=== PATIENT | female | born 1985 ===

== ENCOUNTER → 2018-05-23 | Outpatient (CLI) | payer OTHER ==
[2018-05-23 12:41] LABS: BASOPHILS ABSOLUTE AUTO 0.04 K/mm3 (0.00-0.23); BASOPHILS PERCENT AUTO 1 % (0-2); EOSINOPHILS ABSOLUTE AUTO 0.05 K/mm3 (0.00-0.68); EOSINOPHILS PERCENT AUTO 1 % (0-6); Hematocrit 39.6 % (33.0-51.0); Hemoglobin 13.4 g/dL (11.5-16.0); IMMATURE GRAN ABSOLUTE AUTO 0.01 K/mm3 (0.00-0.10); IMMATURE GRAN PERCENT AUTO 0 % (0-1); LYMPHOCYTES ABSOLUTE AUTO 1.62 K/mm3 (0.84-5.20); LYMPHOCYTES PERCENT AUTO 34 % (21-46); MONOCYTES PERCENT AUTO 11 % (4-13); Mean Corpuscular HGB 33.9 pg (26.0-34.0); Mean Corpuscular HGB Conc 33.8 g/dL (31.5-36.5); Mean Corpuscular Volume 100 fL (80-100); Mean Platelet Volume 10.3 fL (9.1-12.4); NEUTROPHILS ABSOLUTE AUTO 2.56 K/mm3 (1.96-9.15); NEUTROPHILS PERCENT AUTO 54 % (41-73); Platelet Count 204 K/mm3 (150-400); RDW Coefficient Variation 13.3 % (11.7-14.2); RDW Standard Deviation 49.4 fL (35.1-46.3); Red Blood Cell Count 3.95 M/mm3 (3.80-5.20); White Blood Cell Count 4.78 K/mm3 (4.00-11.30)
== END | disposition home or self-care (01) ==
LOC: LAB SHORT 12:36 → LAB EV 12:36
PROVIDERS: Physician Assistant Surgical
DX: R58 Hemorrhage, not elsewhere classified (principal)
CPT/HCPCS: 84443; 85025

== ENCOUNTER → 2023-08-25 | Outpatient (CLI) | payer OTHER | LOC: LAB SHORT 07:43 → PLD 07:43 | DX: D06.9 Carcinoma in situ of cervix, unspecified (principal); R87.612 Low grade squamous intraepithelial lesion on cytologic smear of cervix (LGSIL); R87.810 Cervical high risk human papillomavirus (HPV) DNA test positive | CPT/HCPCS: 88305; 88312 ==

== ENCOUNTER 2023-09-12 09:26 | Day surgery (SDC) | payer OTHER ==
[~2023-09-12] VITALS: Ht 154.9 cm; Wt 47.5 kg
--- NOTE | 2023-09-12 11:12 | NUR ---
09/12/23 1112 Carissa Sheikh 10 UNITS OF VASOPRESSIN MIXED WITH 30ML OF LIDOCAINE 1% TO MAKE LOCAL FOR INJECTION AT THE OPSITE BY DR CRUZ. 10 ML INJECTED. [place] [facility] AT [address] CRUZ. LOT #: [id number] EXPIRATION: 01/2026
[2023-09-12 11:45] VITALS: BP 100/78
--- NOTE | 2023-09-12 11:52 | NUR ---
09/12/23 1152 Eliana Smith PT STATES THAT PAIN IS NOW AT A 3/10.
== END 2023-09-12 12:11 | disposition home or self-care (01) ==
LOC: ORSCSDS 09:26
PROVIDERS: Obstetrics & Gynecology
PROC: 0UBC7ZX Excision of Cervix, Via Natural or Artificial Opening, Diagnostic (ICD-10-PCS; principal; 2023-09-12 10:45)
PROC: 0UPD7HZ Removal of Contraceptive Device from Uterus and Cervix, Via Natural or Artificial Opening (ICD-10-PCS; principal; 2023-09-12 10:45)
DX: D06.7 Carcinoma in situ of other parts of cervix (principal); Z30.9 Encounter for contraceptive management, unspecified; F17.210 Nicotine dependence, cigarettes, uncomplicated
CPT/HCPCS: 88305; A9270; J1100; J1885; J2001; J2250; J2371; J2405; J2704; J3010; J7120; J7297